=== PATIENT | female | born 1950 | race Caucasian/White ===

== ENCOUNTER 2020-03-02 14:29 | Emergency (ER) | payer MEDICARE, OTHER ==
--- NOTE | 2020-03-02 15:04 | EDM.PDOC ---
<Flako Gilliland M - Last Filed: 03/02/20 15:59> ED HPI GENERAL MEDICAL PROBLEM - General Chief Complaint: Respiratory Problem Stated Complaint: COUGH/VOMITING/NECK PAIN/CONSTIPATION Time Seen by Provider: 03/02/20 15:30 Source of Information: Reports: Patient History Limitations: Reports: No Limitations - History of Present Illness INITIAL COMMENTS - FREE TEXT/NARRATIVE: Patient is a 69-year-old female who presents to the emergency department with complaints of Covid symptoms. She states she began feeling unwell last February 22 and went in and got tested for Covid on February 23. She states she found out the positive result on February 26. Initial symptoms were generalized malaise, nonproductive cough, nausea vomiting, and diarrhea. Patient states since then she has had continued nausea and vomiting with decreased appetite, but diarrhea has subsided. To the point that she now is feels constipated. Patient states that she is short of breath. O2 saturations in triage were 96% on room air. Onset: Gradual Duration: Getting Worse - Related Data Allergies Allergy/AdvReac Type Severity Reaction Status Date / Time meperidine HCl [From Demerol] AdvReac Headache Verified 06/16/15 10:09 morphine AdvReac Vomiting Verified 06/16/15 10:09 Home Meds: Home Meds Albuterol [Ventolin HFA] 1 puff INH Q4H PRN 06/15/15 [History] Budesonide/Formoterol [Symbicort 160-4.5 MCG] 2 puff INH BID 06/15/15 [History] Hydrochlorothiazide 25 mg PO DAILY 06/15/15 [History] Telmisartan [Micardis] 80 mg PO BEDTIME 06/15/15 [History] Aspirin [Halfprin] 81 mg PO DAILY 03/02/20 [History] Calcium Carb, Citrate/Vit D3 [Calcium + D3 ER Tablet] 600 mg PO DAILY 03/02/20 [History] Cetirizine [ZyrTEC] 10 mg PO ASDIRECTED 03/02/20 [History] Cholecalciferol (Vitamin D3) [Vitamin D3] 4,000 unit PO DAILY 03/02/20 [History] Ibuprofen [Motrin] 400 mg PO BEDTIME 03/02/20 [History] Metoclopramide HCl [Reglan] 10 mg PO QID PRN #20 tablet 03/02/20 [Rx] guaiFENesin [Mucinex] 600 mg PO ASDIRECTED 03/02/20 [History] ED ROS GENERAL - Review of Systems Review Of Systems: See Below Constitutional: Reports: Malaise, Weakness, Decreased Appetite HEENT: Reports: No Symptoms Respiratory: Reports: Shortness of Breath, Cough, Sputum (Scant). Denies: Wheezing, Pleuritic Chest Pain Cardiovascular: Reports: No Symptoms Endocrine: Reports: No Symptoms GI/Abdominal: Reports: No Symptoms : Reports: No Symptoms Musculoskeletal: Reports: Neck Pain (States generalized malaise has settled into her neck.) Skin: Reports: No Symptoms Neurological: Reports: No Symptoms Psychiatric: Reports: No Symptoms Hematologic/Lymphatic: Reports: No Symptoms Immunologic: Reports: No Symptoms ED EXAM, GENERAL - Physical Exam Exam: See Below Exam Limited By: No Limitations General Appearance: Alert, WD/WN, No Apparent Distress, Anxious Eye Exam: Bilateral Eye: PERRL Ears: Hearing Grossly Normal Throat/Mouth: Normal Voice, No Airway Compromise Head: Atraumatic, Normocephalic Neck: Normal Inspection, Supple, Non-Tender, Full Range of Motion Respiratory/Chest: No Respiratory Distress, Lungs Clear, No Accessory Muscle Use, Decreased Breath Sounds Cardiovascular: Normal Peripheral Pulses, No Edema, No Murmur, Tachycardia Peripheral Pulses: 2+: Radial (L), Radial (R), Dorsalis Pedis (L), Dorsalis Pedis (R) GI/Abdominal: Normal Bowel Sounds, Soft, Non-Tender, No Distention (Female) Exam: Deferred Rectal (Female) Exam: Deferred Back Exam: Normal Inspection, Full Range of Motion Extremities: Normal Inspection, Normal Range of Motion, No Pedal Edema, Normal Capillary Refill Neurological: Alert, Oriented, Normal Cognition Psychiatric: Normal Mood, Anxious Skin Exam: Warm, Dry, Intact, Normal Color, No Rash Lymphatic: No Adenopathy #1 Interpretation EKG Date: 03/02/20 Time: 15:40 Rhythm: Other (Sinus tachycardia) Rate (Beats/Min): [address] [place]: Normal P-Wave: Present QRS: Normal ST-T: Normal QT: Normal EKG Interpretation Comments: Interpretation per Dr. Mensah sinus tachycardia at 104, Q wave leads III and aVF consider old inferior wall MT, mild LAD -5 degrees Course - Re-Assessments/Exams Free Text/Narrative Re-Assessment/Exam: 03/02/20 1535 Due to chest x-ray, KUB, CBC, CMP, EKG, troponin, magnesium, C-reactive protein, D-dimer, and serum ketones. 03/02/20 16:11 I have turned over care to NELSY Aj. Departure - Departure Disposition: Home, Self-Care 01 Clinical Impression: COVID-19, Dehydration, mild - Discharge Information Prescriptions: Metoclopramide HCl [Reglan] 10 mg PO QID PRN #20 tablet PRN Reason: Nausea Instructions: COVID-19 Frequently Asked Questions, COVID-19: How to Protect Yourself and Others - CDC, Dehydration, Elderly, [id number] Referrals: Nandini Cavazos MD [Primary Care Provider] - Forms: ED Department Discharge Additional Instructions: You were seen in the ER today for ongoing and/or worsening respiratory symptoms. Your chest x-ray showed no signs of pneumonia at this time. Your oxygen levels were great at 95% on room air. You were given the monoclonal antibody to help your COVID-19 symptoms. This should make your disease process not last as long and you should hopefully be feeling better soon. Please try to increase your oral fluid intake, and eat multiple small meals throughout the day, to keep yourself healthy. You need to keep yourself nourished in order to fight off this disease. You can try a liquid diet like gatorade/powerade as well to get your electrolytes. You may also try protein shakes to get nourishment. You may take 500 mg Tylenol every hours 6 hours for pain/fever relief. Do not exceed 4000 mg Tylenol in a 24-hour time span. However, running a fever is your body's natural response to illness, and it allows the body to develop antibodies to disease, we are recommending trying to limit the use of Tylenol as much as possible to allow your body's natural immune response. Recommend you obtain a pulse oximeter and monitor your oxygen levels at home, you should place the monitor on your finger, and sit in a calm, quiet position for a few minutes and then record the number that is on the screen. If this consistently below 90% on room air without movement, this would be cause for concern to come back to the hospital for further management of your COVID-19 disease. <SaraYuridia Anderson - Last Filed: 03/02/20 18:01> Course - Re-Assessments/Exams Free Text/Narrative Re-Assessment/Exam: 03/02/20 16:25 The patient's care was assumed from Marco Sotelo NP. She did give me report on the patient's status. Patient is over 65, and has cardiovascular disease, so is a candidate for bamlanivimab treatment. I spoke with the patient to provide information about bamlanivimab treatment. I offered them the "[facility] bamlanivimab fact sheet" to read and review. I stated that the drug has been approved by an emergency use authorization (EUA) process and has not been fully FDA reviewed or approved. The patient meets the EUA requirements. I discussed there are other potential treatment options that are currently not FDA approved to treat COVID-19. I did offer an opportunity to ask questions and all questions were answered. Patient voiced understanding and agreed to proceed with the treatment. 03/02/20 16:27 Patient also appears dehydrated by lab standards, anion gap is elevated, which could be attributing to some of her nausea as well. Patient will be given some regular IV fluids, while she is getting the bamlanivimab. 03/02/20 18:01 Patient has received the bamlanivimab and tolerated it well. She will be observed for 1 hour and discharged home after her bag of fluids has been completed. Departure - Departure Time of Disposition: 18:03 Condition: Good - Discharge Information *PRESCRIPTION DRUG MONITORING PROGRAM REVIEWED*: No *COPY OF PRESCRIPTION DRUG MONITORING REPORT IN PATIENT NEGRA: No <Khadar Yanes - Last Filed: 03/04/20 10:57> Past Medical History HEENT History: Reports: Impaired Vision Other HEENT History: wears contacts and glasses Respiratory History: Reports: Asthma Other Genitourinary History: frequency Neurological History: Reports: Migraines - Infectious Disease History Infectious Disease History: Reports: Novel Coronavirus - Past Surgical History HEENT Surgical History: Reports: Tonsillectomy GI Surgical History: Reports: Cholecystectomy, Colonoscopy Other Musculoskeletal Surgeries/Procedures:: L hip replacement Social & Family History - Tobacco Use Tobacco Use Status *Q: Never Tobacco User - Caffeine Use Caffeine Use: Reports: Coffee, Tea - Recreational Drug Use Recreational Drug Use: No Course - Vital Signs Last Recorded V/S: Last Vital Signs Temp 36.6 C 03/02/20 14:54 Pulse 93 03/02/20 18:15 Resp 20 03/02/20 18:15 BP 124/64 03/02/20 18:15 Pulse Ox 93 L 03/02/20 18:15 - Orders/Labs/Meds Labs: Laboratory Tests 03/02/20 03/02/20 03/02/20 Range/Units 15:35 15:35 15:35 WBC 5.71 (3.98-10.04) K/mm3 RBC 4.82 (3.98-5.22) M/mm3 Hgb 13.9 (11.2-15.7) gm/dl Hct 40.4 (34.1-44.9) % MCV 83.8 (79.4-94.8) fl MCH 28.8 (25.6-32.2) pg MCHC 34.4 (32.2-35.5) g/dl RDW Std Deviation 42.1 (36.4-46.3) fL Plt Count 191 (182-369) K/mm3 MPV 9.9 (9.4-12.3) fl Neut % (Auto) 73.1 H (34.0-71.1) % Lymph % (Auto) 14.9 L (19.3-51.7) % [place] % (Auto) 11.4 (4.7-12.5) % Eos % (Auto) 0 L (0.7-5.8) Baso % (Auto) 0.2 (0.1-1.2) % Neut # (Auto) 4.18 (1.56-6.13) K/mm3 Lymph # (Auto) 0.85 L (1.18-3.74) K/mm3 [place] # (Auto) 0.65 H (0.24-0.36) K/mm3 Eos # (Auto) 0.00 L (0.04-0.36) K/mm3 Baso # (Auto) 0.01 (0.01-0.08) K/mm3 D-Dimer, Quantitative 0.52 H (0.19-0.50) mg/L Sodium 131 L (136-145) mEq/L Potassium 3.7 (3.5-5.1) mEq/L Chloride 97 L (98-107) mEq/L Carbon Dioxide 16 L (21-32) mEq/L Anion Gap 21.7 H (5-15) BUN 41 H (7-18) mg/dL Creatinine 2.0 H (0.55-1.02) mg/dL Est Cr Clr Drug Dosing 19.75 mL/min Estimated GFR (MDRD) 25 (>60) mL/min BUN/Creatinine Ratio 20.5 H (14-18) Glucose 154 H (80-115) mg/dL Calcium 8.8 (8.5-10.1) mg/dL Magnesium 1.5 L (1.8-2.4) mg/dl Total Bilirubin 0.3 (0.2-1.0) mg/dL AST 67 H (15-37) U/L ALT 58 (14-59) U/L Alkaline Phosphatase 85 (46-116) U/L Troponin I < 0.017 (0.00-0.056) ng/mL C-Reactive Protein 6.5 H* (<1.0) mg/dL Total Protein 7.4 (6.4-8.2) g/dl Albumin 3.2 L (3.4-5.0) g/dl Globulin 4.2 gm/dL Albumin/Globulin Ratio 0.8 L (1-2) Ketones (0.0-0.3) mM 12/15/20 Range/Units 15:35 WBC (3.98-10.04) K/mm3 RBC (3.98-5.22) M/mm3 Hgb (11.2-15.7) gm/dl Hct (34.1-44.9) % MCV (79.4-94.8) fl MCH (25.6-32.2) pg MCHC (32.2-35.5) g/dl RDW Std Deviation (36.4-46.3) fL Plt Count (182-369) K/mm3 MPV (9.4-12.3) fl Neut % (Auto) (34.0-71.1) % Lymph % (Auto) (19.3-51.7) % [place] % (Auto) (4.7-12.5) % Eos % (Auto) (0.7-5.8) Baso % (Auto) (0.1-1.2) % Neut # (Auto) (1.56-6.13) K/mm3 Lymph # (Auto) (1.18-3.74) K/mm3 [place] # (Auto) (0.24-0.36) K/mm3 Eos # (Auto) (0.04-0.36) K/mm3 Baso # (Auto) (0.01-0.08) K/mm3 D-Dimer, Quantitative (0.19-0.50) mg/L Sodium (136-145) mEq/L Potassium (3.5-5.1) mEq/L Chloride (98-107) mEq/L Carbon Dioxide (21-32) mEq/L Anion Gap (5-15) BUN (7-18) mg/dL Creatinine (0.55-1.02) mg/dL Est Cr Clr Drug Dosing mL/min Estimated GFR (MDRD) (>60) mL/min BUN/Creatinine Ratio (14-18) Glucose (80-115) mg/dL Calcium (8.5-10.1) mg/dL Magnesium (1.8-2.4) mg/dl Total Bilirubin (0.2-1.0) mg/dL AST (15-37) U/L ALT (14-59) U/L Alkaline Phosphatase (46-116) U/L Troponin I (0.00-0.056) ng/mL C-Reactive Protein (<1.0) mg/dL Total Protein (6.4-8.2) g/dl Albumin (3.4-5.0) g/dl Globulin gm/dL Albumin/Globulin Ratio (1-2) Ketones 0.58 (0.0-0.3) mM Meds: Medications Discontinued Medications Generic Name Dose Route Start Last Admin Trade Name Freq PRN Reason Stop Dose Admin Diphenhydramine HCl 50 mg 03/02/20 16:09 Benadryl IVPUSH ONETIME PRN hypersensitivity reaction Epinephrine HCl 0.3 mg 03/02/20 16:15 Adrenalin IM ONETIME PRN hypersensitivity reaction Famotidine 20 mg 03/02/20 16:09 Pepcid IVPUSH ONETIME PRN hypersensitivity reaction Bamlanivimab 700 mg/ Sodium 250 mls @ 250 mls/hr 03/02/20 16:09 03/02/20 16:34 Chloride IV 03/02/20 16:10 250 mls/hr ONETIME ONE Administration Protocol Sodium Chloride 1,000 mls @ 500 mls/hr 03/02/20 16:26 03/02/20 17:04 Normal Saline IV 03/02/20 18:25 500 mls/hr ONETIME ONE Administration Methylprednisolone Sodium Succinate 125 mg 03/02/20 16:09 Solu-Medrol IVPUSH ONETIME PRN hypersensitivity reaction Metoclopramide HCl 10 mg 03/02/20 16:41 03/02/20 17:04 Reglan IVPUSH 03/02/20 16:42 10 mg ONETIME ONE Administration Ondansetron HCl 4 mg 03/02/20 15:35 03/02/20 15:38 Zofran IVPUSH 03/02/20 15:36 4 mg ONETIME ONE Administration Sodium Chloride 10 ml 03/02/20 15:13 03/02/20 15:38 Saline Flush FLUSH 10 ml ASDIRECTED PRN Administration Keep Vein Open Sodium Chloride 30 ml 03/02/20 16:15 Saline Flush FLUSH ASDIRECTED KATHY Sepsis Event Note (ED) - Evaluation Sepsis Screening Result: No Definite Risk
[2020-03-02] MEDS ORDERED: Sodium Chloride 0.9% 10 ML Syringe FLUSH PRN (15:13)
[2020-03-02] MEDS ORDERED: Ondansetron 4 MG/2 ML SDV IVPUSH ONE (15:35)
--- NOTE | 2020-03-02 15:59 | CR ---
Chest: Portable view of the chest was obtained. Comparison: Prior chest x-ray of 01/24/10. Heart size and mediastinum are normal. Lungs show no definite acute infiltrates. Bony structures show no gross abnormality. Impression: 1. Nothing acute is seen. Diagnostic code #1
--- NOTE | 2020-03-02 15:59 | CR ---
Abdomen: Supine portable view of the abdomen was obtained. Comparison: No prior abdominal x-ray. Surgical clips are seen from previous cholecystectomy. Bowel gas pattern is normal. Small calcifications within the pelvis with most likely representing minimal phleboliths. Bilateral hip prostheses are noted. Degenerative change is seen within the lumbar spine. Impression: 1. Findings as noted above. 2. Nothing acute is appreciated. Diagnostic code #2
[2020-03-02] MEDS ORDERED: diphenhydrAMINE 50 MG/ML SDV IVPUSH PRN (16:09)
[2020-03-02] MEDS ORDERED: Famotidine 20 MG/2 ML SDV IVPUSH PRN (16:09)
[2020-03-02] MEDS ORDERED: methylPREDNISolone Sodium Succinate 125 MG/2 ML SDV IVPUSH PRN (16:09)
[2020-03-02] MEDS ORDERED: EPINEPHrine 1:10,000 1 MG/10 ML Syringe IM PRN (16:09)
[2020-03-02] MEDS ORDERED: Sodium Chloride 0.9% 10 ML Syringe FLUSH SCH (16:15)
[2020-03-02] MEDS ORDERED: EPINEPHrine 1 MG/ML SDV IM PRN (16:15)
[2020-03-02] MEDS ORDERED: Sodium Chloride 0.9% 1,000 ML IV ONE (16:26)
[2020-03-02] MEDS ORDERED: Metoclopramide 10 MG/2 ML SDV IVPUSH ONE (16:41)
[2020-03-02 18:25] VITALS: BP 124/64; PULSE 93
== END 2020-03-02 18:55 | disposition home or self-care (01) ==
LOC: SUPCPDRO 14:29 → JD.ED 14:29
DX: U07.1 COVID-19 (principal); E86.0 Dehydration; R00.0 Tachycardia, unspecified; J45.909 Unspecified asthma, uncomplicated; Z88.8 Allergy status to other drugs, medicaments and biological substances; Z88.5 Allergy status to narcotic agent; Z79.899 Other long term (current) drug therapy; Z79.82 Long term (current) use of aspirin
CPT/HCPCS: 36415; 71045; 74018; 80053; 82009; 83735; 84484; 85025; 85379; 86140; 93005; 96365; 96375; 99285; J2405; J2765; J7030; J7050; 93010; 99284